=== PATIENT | female | born 1950 | race Hispanic/Latino ===

== ENCOUNTER 2017-05-02 11:10 | Inpatient (IN) | payer OTHER ==
[2017-05-02] VITALS (15 sets, daily range): BP systolic 67–137; BP diastolic 42–86
[~2017-05-02] VITALS: Ht 162.6 cm; Wt 67.5 kg
[~2017-05-02 11:10] MED LIST: AMLO1CAP13 PO; ATOR40TA69 PO; ERGO500014 PO; ESCI20TA36 PO; LEVO75TA10 PO; MELO-108 PO; METO25TA6 PO
[2017-05-02] MEDS ORDERED: METHYLPREDNISOLONE SOD SUCC 125MG/2ML VIAL ONE (11:14)
[2017-05-02] MEDS ORDERED: DiphenhydrAMINE HCL 50 MG/ML VIAL ONE (11:14)
[2017-05-02] MEDS ORDERED: RACEPINEPHRINE HCL 2.25% 0.5 ML NEB SOLN ONE (11:32)
[2017-05-02 11:51] LABS: BASOPHILS % (AUTO) 0.6 % (0.0-5.0); EOSINOPHILS % (AUTO) 0.9 % (0.0-8.0); HEMATOCRIT 40.7 % (36-48); LYMPHOCYTES % (AUTO) 37.5 % (21.0-51.0); MEAN CORPUSCULAR HEMOGLOBIN 34.1 pg (27.0-33.0); MEAN CORPUSCULAR VOLUME 97.3 fL (79-99); MONOCYTES % (AUTO) 8.1 % (3.0-13.0); NEUTROPHILS % (AUTO) 52.9 % (40.0-77.0); NUCLEATED RED BLOOD CELLS 0.1 % (0.0-0.19); PLATELET COUNT (AUTO) 305 K/uL (130-400); RED BLOOD CELL COUNT(AUTO) 4.18 MIL/uL (4.00-5.50); RED CELL DISTRIBUTION WIDTH 13.9 % (11.0-15.5); WHITE BLOOD COUNT (AUTO) 5.1 K/uL (4.8-10.8)
[2017-05-02] MEDS ORDERED: FAMOTIDINE/PF 20 MG/2 ML VIAL IV ONE (12:04)
[2017-05-02 12:06] LABS: CREATININE 0.7 mg/dL (0.5-1.5); POTASSIUM 3.9 mmol/L (3.5-5.1)
[2017-05-02] MEDS ORDERED: ONDANSETRON HCL 4 MG/2 ML VIAL ONE (12:08)
[2017-05-02 12:10] LABS: ALBUMIN 4.6 g/dL (3.5-5.0); BILIRUBIN,TOTAL 0.8 mg/dL (0.2-1.0); TOTAL PROTEIN, SERUM 8.3 g/dL (6.0-8.3)
[2017-05-02] MEDS ORDERED: PROPOFOL 1000 MG/100 ML 100 ML IV ONE ×2 (12:34→14:27)
[2017-05-02 13:19] LABS: INR 0.9 (0.85-1.15); PARTIAL THROMBOPLASTIN TIME 27.8 SEC (26.3-35.5); PROTHROMBIN TIME 9.5 SEC (9.6-11.6)
[2017-05-02] MEDS ORDERED: MIDAZOLAM HCL 1 MG/ML 2ML VIAL ONE (13:28)
[2017-05-02] MEDS ORDERED: PROPOFOL 1000 MG/100 ML IV PRN (14:15)
[2017-05-02] MEDS ORDERED: SODIUM CHLORIDE 0.9% 1000ML 1,000 ML IV SCH (14:30)
[2017-05-02] MEDS ORDERED: LABETALOL 20 MG/4 ML DISP.SYRIN IV PRN (14:45)
[2017-05-02] MEDS: MORPHINE SULFATE 2 MG/ML 1ML SYG IVP PRN (15:22)
[2017-05-02] MEDS: SODIUM CHLORIDE 0.9% 1000ML 1,000 ML IV SCH (15:22)
[2017-05-02] MEDS: MIDAZOLAM 100MG-0.9% NS 100ML 100 ML IV PRN (15:41)
[2017-05-02] MEDS: FENTANYL 2500MCG+NS 250ML 250 ML IV PRN (15:42)
[2017-05-02 15:52] LABS: ABG BASE EXCESS -5.5 mmol/L (-2.0-3.0); ABG HCO3 20.5 mmol/L (21.0-28.0); ABG OXYGEN SATURATION 96.9 % (95.0-99.0); ABG PCO2 42 mmHg (32-45)
[2017-05-02] MEDS: METHYLPREDNISOLONE SOD SUCC 40MG/ML 1ML IVP SCH ×2 (16:02→21:17)
[2017-05-02] MEDS: ENOXAPARIN SODIUM 40 MG/0.4 ML SYRINGE SQ SCH (16:02)
[2017-05-02] MEDS: NOREPINEPHRINE 4MG/NS 250ML 250 ML IV SCH (17:09)
[2017-05-02 17:28] LABS: APPEARANCE,URINE Clear (CLEAR); BILIRUBIN,URINE Negative (NEGATIVE); COLOR,URINE Yellow (YELLOW); GLUCOSE, URINE (UA) Negative (NEGATIVE); KETONES,URINE 15 mg/dL (NEGATIVE); LEUKOCYTE ESTERASE ,URINE Negative (NEGATIVE); NITRATE,URINE Negative (NEGATIVE); OCCULT BLOOD,URINE Negative (NEGATIVE); PH,URINE 6.5 (5.0-8.0); PROTEIN,URINE Negative (NEGATIVE); UROBILINOGEN,URINE 0.2 mg/dL (0.2-1.0)
[2017-05-02] MEDS ORDERED: GLUCAGON 1MG KIT 1 MG ML IM PRN (20:00)
[2017-05-02] MEDS ORDERED: DEXTROSE 50%-WATER 50 ML DISP.SYRIN IV PRN (20:00)
[2017-05-02] MEDS: INSULIN HUMULIN R 100 UNIT/ML 3ML SQ SCH (20:00)
[2017-05-02] MEDS ORDERED: SODIUM CHLORIDE 0.9% 500ML 500 ML IV ONE (20:00)
[2017-05-02] MEDS: M V I IV SCH (21:17)
[2017-05-02] MEDS: FOLIC ACID IV SCH (21:17)
[2017-05-02] MEDS: [UNRECOGNIZED DRUG - OTHER] IV SCH (21:17)
[2017-05-02] MEDS: THIAMINE IV SCH (21:17)
[2017-05-02] MEDS ORDERED: OMEP20TA25 PO (22:16)
[2017-05-03] VITALS (27 sets, daily range): BP systolic 91–123; BP diastolic 49–66
[2017-05-03] MEDS: METHYLPREDNISOLONE SOD SUCC 40MG/ML 1ML IVP SCH ×4 (02:29→20:48)
[2017-05-03] MEDS: MIDAZOLAM 100MG-0.9% NS 100ML 100 ML IV PRN ×2 (03:16→19:07)
[2017-05-03] MEDS: SODIUM CHLORIDE 0.9% 1000ML 1,000 ML IV SCH ×2 (03:30→17:20)
[2017-05-03] MEDS: NOREPINEPHRINE 4MG/NS 250ML 250 ML IV SCH (04:37)
[2017-05-03] MEDS: INSULIN HUMULIN R 100 UNIT/ML 3ML SQ SCH ×4 (06:00→17:19)
[2017-05-03] MEDS: CEFTRIAXONE SODIUM 1 GM IVP SCH (08:48)
[2017-05-03] MEDS: ENOXAPARIN SODIUM 40 MG/0.4 ML SYRINGE SQ SCH (08:49)
[2017-05-03] MEDS: PANTOPRAZOLE 40 MG/VIAL IVP SCH (09:00)
[2017-05-03] MEDS ORDERED: CEFTRIAXONE 1GM/D5W 50ML 50 ML IV SCH (09:00)
[2017-05-03] MEDS: [UNRECOGNIZED DRUG - OTHER] IV SCH (09:39)
[2017-05-03] MEDS: THIAMINE IV SCH (09:39)
[2017-05-03] MEDS: FAMOTIDINE/PF 20 MG/2 ML VIAL IV SCH ×2 (09:39→20:48)
[2017-05-03] MEDS: M V I IV SCH (09:39)
[2017-05-03] MEDS: FOLIC ACID IV SCH (09:39)
[2017-05-03] MEDS: FENTANYL 2500MCG+NS 250ML 250 ML IV PRN (15:18)
[2017-05-04] VITALS (25 sets, daily range): BP systolic 109–159; BP diastolic 57–88
[2017-05-04] MEDS: SODIUM CHLORIDE 0.9% 1000ML 1,000 ML IV SCH ×2 (01:34→20:34)
[2017-05-04] MEDS: METHYLPREDNISOLONE SOD SUCC 40MG/ML 1ML IVP SCH ×4 (02:23→21:28)
[2017-05-04 04:02] LABS: HEMATOCRIT 32.7 % (36-48); MEAN CORPUSCULAR HGB CONC 35.4 g/dL (32.0-36.0); MEAN CORPUSCULAR VOLUME 98.9 fL (79-99); PLATELET COUNT (AUTO) 237 K/uL (130-400); RED BLOOD CELL COUNT(AUTO) 3.31 MIL/uL (4.00-5.50); RED CELL DISTRIBUTION WIDTH 13.7 % (11.0-15.5); WHITE BLOOD COUNT (AUTO) 7.2 K/uL (4.8-10.8)
[2017-05-04 04:14] LABS: CREATININE 0.5 mg/dL (0.5-1.5); POTASSIUM 3.7 mmol/L (3.5-5.1)
[2017-05-04] MEDS: INSULIN HUMULIN R 100 UNIT/ML 3ML SQ SCH ×4 (06:00→18:00)
[2017-05-04] MEDS ORDERED: CALCIUM GLUCONATE 1 GM in SODIUM CHLORIDE 0.9% 50 ML IV SCH (06:15)
[2017-05-04 06:50] LABS: ALBUMIN 2.8 g/dL (3.5-5.0); BILIRUBIN,TOTAL 0.4 mg/dL (0.2-1.0); MAGNESIUM 2.1 mg/dL (1.80-2.40); TOTAL PROTEIN, SERUM 5.6 g/dL (6.0-8.3)
[2017-05-04] MEDS: CEFTRIAXONE SODIUM 1 GM IVP SCH (08:29)
[2017-05-04] MEDS: ENOXAPARIN SODIUM 40 MG/0.4 ML SYRINGE SQ SCH (08:30)
[2017-05-04] MEDS ORDERED: PANTOPRAZOLE SODIUM 40 MG TABLET.DR PO ONE (08:37)
[2017-05-04] MEDS: [UNRECOGNIZED DRUG - OTHER] IV SCH (08:50)
[2017-05-04] MEDS: M V I IV SCH (08:50)
[2017-05-04] MEDS: FAMOTIDINE/PF 20 MG/2 ML VIAL IV SCH ×2 (08:50→20:33)
[2017-05-04] MEDS: THIAMINE IV SCH (08:50)
[2017-05-04] MEDS: FOLIC ACID IV SCH (08:50)
[2017-05-04] MEDS: PANTOPRAZOLE 40 MG/VIAL IVP SCH (08:51)
[2017-05-04] MEDS: MIDAZOLAM 100MG-0.9% NS 100ML 100 ML IV PRN (09:19)
[2017-05-04] MEDS: FENTANYL 2500MCG+NS 250ML 250 ML IV PRN (20:15)
[2017-05-05] VITALS (20 sets, daily range): BP systolic 124–150; BP diastolic 56–95
[2017-05-05 03:58] LABS: BASOPHILS % (AUTO) 0.3 % (0.0-5.0); HEMATOCRIT 33.7 % (36-48); MEAN CORPUSCULAR HEMOGLOBIN 33.2 pg (27.0-33.0); MEAN CORPUSCULAR HGB CONC 34.3 g/dL (32.0-36.0); MEAN CORPUSCULAR VOLUME 96.8 fL (79-99); MONOCYTES % (AUTO) 5.5 % (3.0-13.0); NEUTROPHILS % (AUTO) 84.9 % (40.0-77.0); PLATELET COUNT (AUTO) 208 K/uL (130-400); RED BLOOD CELL COUNT(AUTO) 3.48 MIL/uL (4.00-5.50); RED CELL DISTRIBUTION WIDTH 13.5 % (11.0-15.5); WHITE BLOOD COUNT (AUTO) 7.1 K/uL (4.8-10.8)
[2017-05-05 04:14] LABS: ALBUMIN 2.7 g/dL (3.5-5.0); BILIRUBIN,TOTAL 0.5 mg/dL (0.2-1.0); CREATININE 0.5 mg/dL (0.5-1.5); TOTAL PROTEIN, SERUM 5.9 g/dL (6.0-8.3)
[2017-05-05 04:20] LABS: POTASSIUM 2.8 mmol/L (3.5-5.1)
[2017-05-05 04:21] LABS: LYMPHOCYTES % (AUTO) 9.3 % (21.0-51.0)
[2017-05-05] MEDS: INSULIN HUMULIN R 100 UNIT/ML 3ML SQ SCH ×4 (04:35→18:00)
[2017-05-05] MEDS ORDERED: POTASSIUM CHLORIDE 10% ELIXIR 20 MEQ/15 ML UDCUP PO PRN (04:45)
[2017-05-05] MEDS ORDERED: POTASSIUM CHLORIDE 20 MEQ ERTAB PO PRN (04:45)
[2017-05-05] MEDS: METHYLPREDNISOLONE SOD SUCC 40MG/ML 1ML IVP SCH ×4 (04:45→20:15)
[2017-05-05] MEDS: POTASSIUM CHLORIDE 20MEQ/100ML 100 ML IV PRN ×4 (05:45→23:59)
[2017-05-05] MEDS: SODIUM CHLORIDE 0.9% 1000ML 1,000 ML IV SCH ×2 (05:46→23:21)
[2017-05-05] MEDS: FAMOTIDINE/PF 20 MG/2 ML VIAL IV SCH ×2 (09:22→20:15)
[2017-05-05] MEDS: PANTOPRAZOLE SODIUM 40 MG TABLET.DR PO SCH (09:22)
[2017-05-05] MEDS: ENOXAPARIN SODIUM 40 MG/0.4 ML SYRINGE SQ SCH (09:23)
[2017-05-05] MEDS: NICOTINE 14 MG/ 24 HR PATCH TD SCH (09:23)
[2017-05-05] MEDS: CEFTRIAXONE SODIUM 1 GM IVP SCH (09:24)
[2017-05-05] MEDS: FOLIC ACID IV SCH (10:32)
[2017-05-05] MEDS: THIAMINE IV SCH (10:32)
[2017-05-05] MEDS: M V I IV SCH (10:32)
[2017-05-05] MEDS: [UNRECOGNIZED DRUG - OTHER] IV SCH (10:32)
[2017-05-05] MEDS ORDERED: ERGOCALCIFEROL (VITAMIN D2) 50,000 UNIT CAPSULE PO SCH (13:30)
[2017-05-05] MEDS ORDERED: MORPHINE SULFATE 4 MG/1ML SYG IV PRN (13:30)
[2017-05-05] MEDS: CHLORHEXIDINE GLUCONATE 473 ML MOUTHWASH MM SCH ×2 (20:14→23:22)
[2017-05-05] MEDS: METOPROLOL TARTRATE 25 MG TAB PO SCH (20:15)
[2017-05-05] MEDS: MORPHINE SULFATE 2 MG/ML 1ML SYG IVP PRN (20:15)
[2017-05-05] MEDS: LIDOCAINE HCL-MPF 1% 2ML VIAL IVP PRN (21:21)
[2017-05-06] VITALS (20 sets, daily range): BP systolic 85–139; BP diastolic 57–95
[2017-05-06] MEDS: LIDOCAINE HCL-MPF 1% 2ML VIAL IVP PRN ×3 (00:02→14:40)
[2017-05-06] MEDS: METHYLPREDNISOLONE SOD SUCC 40MG/ML 1ML IVP SCH ×3 (02:32→21:07)
[2017-05-06] MEDS ORDERED: LORAZEPAM 2 MG/ML 1 ML VIAL ONE (02:49)
[2017-05-06] MEDS: CHLORHEXIDINE GLUCONATE 473 ML MOUTHWASH MM SCH ×3 (05:39→18:24)
[2017-05-06] MEDS: INSULIN HUMULIN R 100 UNIT/ML 3ML SQ SCH ×4 (05:48→16:07)
[2017-05-06 08:15] LABS: BASOPHILS % (AUTO) 0.1 % (0.0-5.0); HEMATOCRIT 37.8 % (36-48); LYMPHOCYTES % (AUTO) 7.4 % (21.0-51.0); MEAN CORPUSCULAR HEMOGLOBIN 34.1 pg (27.0-33.0); MEAN CORPUSCULAR HGB CONC 35.3 g/dL (32.0-36.0); MEAN CORPUSCULAR VOLUME 96.6 fL (79-99); MONOCYTES % (AUTO) 8.1 % (3.0-13.0); NEUTROPHILS % (AUTO) 84.4 % (40.0-77.0); PLATELET COUNT (AUTO) 235 K/uL (130-400); RED BLOOD CELL COUNT(AUTO) 3.91 MIL/uL (4.00-5.50); RED CELL DISTRIBUTION WIDTH 13.4 % (11.0-15.5); WHITE BLOOD COUNT (AUTO) 9.8 K/uL (4.8-10.8)
[2017-05-06] MEDS: ATORVASTATIN CALCIUM 40 MG TABLET PO SCH (08:21)
[2017-05-06] MEDS: CITALOPRAM 20 MG TABLET PO SCH (08:21)
[2017-05-06] MEDS: PANTOPRAZOLE SODIUM 40 MG TABLET.DR PO SCH (08:21)
[2017-05-06] MEDS: LEVOTHYROXINE 75 MCG TABLET PO SCH (08:21)
[2017-05-06] MEDS: NICOTINE 14 MG/ 24 HR PATCH TD SCH (08:31)
[2017-05-06] MEDS: FAMOTIDINE/PF 20 MG/2 ML VIAL IV SCH ×2 (08:32→21:07)
[2017-05-06] MEDS: CEFTRIAXONE SODIUM 1 GM IVP SCH (08:34)
[2017-05-06 08:35] LABS: ALBUMIN 3.1 g/dL (3.5-5.0); BILIRUBIN,TOTAL 0.5 mg/dL (0.2-1.0); CREATININE 0.6 mg/dL (0.5-1.5); MAGNESIUM 2.2 mg/dL (1.80-2.40); TOTAL PROTEIN, SERUM 6.8 g/dL (6.0-8.3)
[2017-05-06 08:36] LABS: POTASSIUM 2.9 mmol/L (3.5-5.1)
[2017-05-06] MEDS: LORAZEPAM 2 MG/ML 1 ML VIAL IVP PRN (08:38)
[2017-05-06] MEDS: ENOXAPARIN SODIUM 40 MG/0.4 ML SYRINGE SQ SCH (08:42)
[2017-05-06] MEDS: POTASSIUM CHLORIDE 20MEQ/100ML 100 ML IV PRN ×2 (08:47→14:41)
[2017-05-06] MEDS: THIAMINE IV SCH (11:30)
[2017-05-06] MEDS: [UNRECOGNIZED DRUG - OTHER] IV SCH (11:30)
[2017-05-06] MEDS: FOLIC ACID IV SCH (11:30)
[2017-05-06] MEDS: M V I IV SCH (11:30)
[2017-05-06] MEDS ORDERED: CHLORDIAZEPOXIDE HCL 25 MG CAP PO ONE (14:00)
[2017-05-06] MEDS: METOPROLOL TARTRATE 25 MG TAB PO SCH (21:07)
[2017-05-07] VITALS (8 sets, daily range): BP systolic 98–153; BP diastolic 60–97
[2017-05-07] MEDS: CHLORHEXIDINE GLUCONATE 473 ML MOUTHWASH MM SCH ×5 (00:05→17:17)
[2017-05-07 04:43] LABS: MAGNESIUM 2.1 mg/dL (1.80-2.40); PHOSPHORUS 3.3 mg/dL (2.5-4.9)
[2017-05-07] MEDS: INSULIN HUMULIN R 100 UNIT/ML 3ML SQ SCH ×4 (06:00→17:17)
[2017-05-07] MEDS ORDERED: POTASSIUM CHLORIDE 10% ELIXIR 20 MEQ/15 ML UDCUP PO PRN (06:30)
[2017-05-07 08:30] LABS: BASOPHILS % (AUTO) 0.3 % (0.0-5.0); HEMATOCRIT 40.5 % (36-48); LYMPHOCYTES % (AUTO) 10.7 % (21.0-51.0); MEAN CORPUSCULAR HEMOGLOBIN 33.1 pg (27.0-33.0); MEAN CORPUSCULAR HGB CONC 33.5 g/dL (32.0-36.0); MEAN CORPUSCULAR VOLUME 98.8 fL (79-99); MONOCYTES % (AUTO) 5.9 % (3.0-13.0); NEUTROPHILS % (AUTO) 83.1 % (40.0-77.0); PLATELET COUNT (AUTO) 226 K/uL (130-400); RED CELL DISTRIBUTION WIDTH 13.8 % (11.0-15.5); WHITE BLOOD COUNT (AUTO) 7.4 K/uL (4.8-10.8)
[2017-05-07 08:41] LABS: CREATININE 0.6 mg/dL (0.5-1.5); POTASSIUM 4.4 mmol/L (3.5-5.1)
[2017-05-07] MEDS: NICOTINE 14 MG/ 24 HR PATCH TD SCH (09:38)
[2017-05-07] MEDS: CHLORDIAZEPOXIDE HCL 25 MG CAP PO SCH (09:38)
[2017-05-07] MEDS: ATORVASTATIN CALCIUM 40 MG TABLET PO SCH (09:38)
[2017-05-07] MEDS: METHYLPREDNISOLONE SOD SUCC 40MG/ML 1ML IVP SCH ×2 (09:38→22:03)
[2017-05-07] MEDS: LEVOTHYROXINE 75 MCG TABLET PO SCH (09:38)
[2017-05-07] MEDS: FAMOTIDINE/PF 20 MG/2 ML VIAL IV SCH ×2 (09:39→22:03)
[2017-05-07] MEDS: PANTOPRAZOLE SODIUM 40 MG TABLET.DR PO SCH (09:39)
[2017-05-07] MEDS: CITALOPRAM 20 MG TABLET PO SCH (09:40)
[2017-05-07] MEDS: ENOXAPARIN SODIUM 40 MG/0.4 ML SYRINGE SQ SCH (09:41)
[2017-05-07] MEDS: CEFTRIAXONE SODIUM 1 GM IVP SCH (09:44)
[2017-05-07] MEDS: FOLIC ACID IV SCH (13:30)
[2017-05-07] MEDS: M V I IV SCH (13:30)
[2017-05-07] MEDS: THIAMINE IV SCH (13:30)
[2017-05-07] MEDS: [UNRECOGNIZED DRUG - OTHER] IV SCH (13:30)
[2017-05-07] MEDS: MORPHINE SULFATE 2 MG/ML 1ML SYG IVP PRN (15:27)
[2017-05-07] MEDS: LORAZEPAM 2 MG/ML 1 ML VIAL IVP PRN (22:27)
[2017-05-08] MEDS: METOPROLOL TARTRATE 25 MG TAB PO SCH (01:15)
[2017-05-08 03:54] VITALS: BP 119/69
[2017-05-08 04:23] LABS: HEMATOCRIT 37.7 % (36-48); MEAN CORPUSCULAR HGB CONC 34.5 g/dL (32.0-36.0); MEAN CORPUSCULAR VOLUME 98.5 fL (79-99); PLATELET COUNT (AUTO) 251 K/uL (130-400); RED BLOOD CELL COUNT(AUTO) 3.83 MIL/uL (4.00-5.50); RED CELL DISTRIBUTION WIDTH 13.4 % (11.0-15.5); WHITE BLOOD COUNT (AUTO) 6.7 K/uL (4.8-10.8)
[2017-05-08 04:36] LABS: CREATININE 0.6 mg/dL (0.5-1.5); PHOSPHORUS 3.8 mg/dL (2.5-4.9); POTASSIUM 3.8 mmol/L (3.5-5.1)
[2017-05-08] MEDS: MORPHINE SULFATE 2 MG/ML 1ML SYG IVP PRN ×2 (04:42→18:18)
[2017-05-08 04:44] LABS: LYMPHOCYTES % (MANUAL) 13 % (22-44); MONOCYTES % (MANUAL) 6 % (2-9); SEGMENTED NEUTROPHILS % 81 % (40-70)
[2017-05-08 04:45] LABS: MAN.DIFF COMMENT-IMPRESSION MANUAL DIFFERENTIAL; PLATELET MORPHOLOGY COMMENT ADEQUATE
[2017-05-08] MEDS ORDERED: POTASSIUM CHLORIDE 10 MEQ/TAB.SA PO ONE ×6 (04:53→06:25)
[2017-05-08] MEDS: INSULIN HUMULIN R 100 UNIT/ML 3ML SQ SCH ×5 (05:59→23:18)
[2017-05-08] MEDS: CHLORHEXIDINE GLUCONATE 473 ML MOUTHWASH MM SCH ×4 (06:40→18:00)
[2017-05-08 07:00] VITALS: BP 125/79
[2017-05-08] MEDS: CITALOPRAM 20 MG TABLET PO SCH (10:11)
[2017-05-08] MEDS: THIAMINE HCL 100 MG/ML 2ML VIAL IVP SCH (10:11)
[2017-05-08] MEDS: CHLORDIAZEPOXIDE HCL 25 MG CAP PO SCH (10:11)
[2017-05-08] MEDS: ATORVASTATIN CALCIUM 40 MG TABLET PO SCH (10:11)
[2017-05-08] MEDS: NICOTINE 14 MG/ 24 HR PATCH TD SCH (10:11)
[2017-05-08] MEDS: LEVOTHYROXINE 75 MCG TABLET PO SCH (10:11)
[2017-05-08] MEDS: PREDNISONE 20 MG TABLET PO SCH (10:11)
[2017-05-08] MEDS: FOLIC ACID 1 MG TABLET PO SCH (10:11)
[2017-05-08] MEDS: PANTOPRAZOLE SODIUM 40 MG TABLET.DR PO SCH (10:11)
[2017-05-08] MEDS: FAMOTIDINE/PF 20 MG/2 ML VIAL IV SCH ×2 (10:11→21:29)
[2017-05-08] MEDS: ENOXAPARIN SODIUM 40 MG/0.4 ML SYRINGE SQ SCH (10:11)
[2017-05-08 11:00] VITALS: BP 136/90
[2017-05-08 16:00] VITALS: BP 142/77
[2017-05-08 19:40] VITALS: BP 102/66
[2017-05-08 23:55] VITALS: BP 125/74
[2017-05-09] MEDS: METOPROLOL TARTRATE 25 MG TAB PO SCH ×2 (00:10→23:37)
[2017-05-09 03:48] VITALS: BP 120/72
[2017-05-09 04:22] LABS: BASOPHILS % (AUTO) 0.3 % (0.0-5.0); EOSINOPHILS % (AUTO) 0.5 % (0.0-8.0); HEMATOCRIT 36.4 % (36-48); LYMPHOCYTES % (AUTO) 36.1 % (21.0-51.0); MEAN CORPUSCULAR HEMOGLOBIN 33.6 pg (27.0-33.0); MEAN CORPUSCULAR HGB CONC 34.4 g/dL (32.0-36.0); MEAN CORPUSCULAR VOLUME 97.8 fL (79-99); MONOCYTES % (AUTO) 11.4 % (3.0-13.0); NEUTROPHILS % (AUTO) 51.7 % (40.0-77.0); PLATELET COUNT (AUTO) 239 K/uL (130-400); RED BLOOD CELL COUNT(AUTO) 3.72 MIL/uL (4.00-5.50); RED CELL DISTRIBUTION WIDTH 13.3 % (11.0-15.5); WHITE BLOOD COUNT (AUTO) 7.3 K/uL (4.8-10.8)
[2017-05-09 04:26] LABS: CREATININE 0.7 mg/dL (0.5-1.5); POTASSIUM 3.6 mmol/L (3.5-5.1)
[2017-05-09] MEDS ORDERED: POTASSIUM CHLORIDE 10 MEQ/TAB.SA PO ONE ×5 (04:54→05:21)
[2017-05-09] MEDS: INSULIN HUMULIN R 100 UNIT/ML 3ML SQ SCH ×4 (06:00→21:00)
[2017-05-09 06:16] LABS: MAGNESIUM 1.9 mg/dL (1.80-2.40); PHOSPHORUS 3.6 mg/dL (2.5-4.9)
[2017-05-09] MEDS: CHLORHEXIDINE GLUCONATE 473 ML MOUTHWASH MM SCH ×5 (06:47→23:40)
[2017-05-09 07:00] VITALS: BP 130/75
[2017-05-09] MEDS: ATORVASTATIN CALCIUM 40 MG TABLET PO SCH (09:57)
[2017-05-09] MEDS: PREDNISONE 20 MG TABLET PO SCH (09:57)
[2017-05-09] MEDS: CITALOPRAM 20 MG TABLET PO SCH (09:57)
[2017-05-09] MEDS: ENOXAPARIN SODIUM 40 MG/0.4 ML SYRINGE SQ SCH (09:57)
[2017-05-09] MEDS: THIAMINE HCL 100 MG/ML 2ML VIAL IVP SCH (09:57)
[2017-05-09] MEDS: PANTOPRAZOLE SODIUM 40 MG TABLET.DR PO SCH (09:57)
[2017-05-09] MEDS: NICOTINE 14 MG/ 24 HR PATCH TD SCH (09:57)
[2017-05-09] MEDS: FOLIC ACID 1 MG TABLET PO SCH (09:57)
[2017-05-09] MEDS: LEVOTHYROXINE 75 MCG TABLET PO SCH (09:57)
[2017-05-09] MEDS: CHLORDIAZEPOXIDE HCL 25 MG CAP PO SCH (09:57)
[2017-05-09] MEDS: FAMOTIDINE/PF 20 MG/2 ML VIAL IV SCH ×2 (09:57→21:36)
[2017-05-09 11:00] VITALS: BP 119/64
[2017-05-09] MEDS: MORPHINE SULFATE 2 MG/ML 1ML SYG IVP PRN ×2 (12:51→18:10)
[2017-05-09 16:00] VITALS: BP 148/88
[2017-05-09 19:38] VITALS: BP 106/66
[2017-05-09 22:48] VITALS: BP 105/59
[2017-05-10 04:03] VITALS: BP 105/65
[2017-05-10 04:47] LABS: BASOPHILS % (AUTO) 0.1 % (0.0-5.0); EOSINOPHILS % (AUTO) 0.7 % (0.0-8.0); HEMATOCRIT 34.5 % (36-48); MEAN CORPUSCULAR HEMOGLOBIN 33.9 pg (27.0-33.0); MEAN CORPUSCULAR HGB CONC 34.4 g/dL (32.0-36.0); MEAN CORPUSCULAR VOLUME 98.6 fL (79-99); MONOCYTES % (AUTO) 13.4 % (3.0-13.0); NEUTROPHILS % (AUTO) 50.8 % (40.0-77.0); PLATELET COUNT (AUTO) 254 K/uL (130-400); RED CELL DISTRIBUTION WIDTH 13.4 % (11.0-15.5); WHITE BLOOD COUNT (AUTO) 6.8 K/uL (4.8-10.8)
[2017-05-10 04:48] LABS: MAGNESIUM 1.9 mg/dL (1.80-2.40); PHOSPHORUS 3.9 mg/dL (2.5-4.9)
[2017-05-10 05:21] LABS: CREATININE 0.6 mg/dL (0.5-1.5); POTASSIUM 3.3 mmol/L (3.5-5.1)
[2017-05-10] MEDS ORDERED: POTASSIUM CHLORIDE 10 MEQ/TAB.SA PO ONE ×2 (05:32)
[2017-05-10] MEDS: CHLORHEXIDINE GLUCONATE 473 ML MOUTHWASH MM SCH ×2 (06:00→12:00)
[2017-05-10] MEDS: INSULIN HUMULIN R 100 UNIT/ML 3ML SQ SCH ×3 (06:26→16:30)
[2017-05-10 07:22] VITALS: BP 120/67
[2017-05-10] MEDS: CITALOPRAM 20 MG TABLET PO SCH (07:57)
[2017-05-10] MEDS: LEVOTHYROXINE 75 MCG TABLET PO SCH (07:57)
[2017-05-10] MEDS: PREDNISONE 20 MG TABLET PO SCH (07:57)
[2017-05-10] MEDS: PANTOPRAZOLE SODIUM 40 MG TABLET.DR PO SCH (07:57)
[2017-05-10] MEDS: ATORVASTATIN CALCIUM 40 MG TABLET PO SCH (07:58)
[2017-05-10] MEDS: FOLIC ACID 1 MG TABLET PO SCH (07:58)
[2017-05-10] MEDS: CHLORDIAZEPOXIDE HCL 25 MG CAP PO SCH (07:58)
[2017-05-10] MEDS: THIAMINE HCL 100 MG/ML 2ML VIAL IVP SCH (08:00)
[2017-05-10] MEDS: ENOXAPARIN SODIUM 40 MG/0.4 ML SYRINGE SQ SCH (08:00)
[2017-05-10] MEDS: FAMOTIDINE/PF 20 MG/2 ML VIAL IV SCH (08:01)
[2017-05-10] MEDS: NICOTINE 14 MG/ 24 HR PATCH TD SCH (09:52)
[2017-05-10] MEDS: MORPHINE SULFATE 2 MG/ML 1ML SYG IVP PRN (10:00)
[2017-05-10 11:10] VITALS: BP 84/51
[2017-05-10 13:15] VITALS: BP 99/55
[2017-05-10 16:21] VITALS: BP 108/65
== END 2017-05-10 18:30 | DRG 4 ==
LOC: EDH 11:10 → 2CH 12:45 → 2AH 05-06 18:33
PROVIDERS: ADMIT Family Medicine; ATTEND Family Medicine
PROC: 0B113F4 Bypass Trachea to Cutaneous with Tracheostomy Device, Percutaneous Approach (ICD-10-PCS; 2017-05-02)
PROC: 5A1945Z Respiratory Ventilation, 24-96 Consecutive Hours (ICD-10-PCS; principal; 2017-05-02 13:10)
DX: T78.3XXA Angioneurotic edema, initial encounter (principal); J96.00 Acute respiratory failure, unspecified whether with hypoxia or hypercapnia; J96.90 Respiratory failure, unspecified, unspecified whether with hypoxia or hypercapnia; E11.65 Type 2 diabetes mellitus with hyperglycemia; E03.9 Hypothyroidism, unspecified; I10 Essential (primary) hypertension; E87.6 Hypokalemia; E83.51 Hypocalcemia; F32.9 Major depressive disorder, single episode, unspecified; D64.9 Anemia, unspecified; E66.9 Obesity, unspecified; F10.10 Alcohol abuse, uncomplicated; F17.210 Nicotine dependence, cigarettes, uncomplicated; K08.89 Other specified disorders of teeth and supporting structures; T88.4XXA Failed or difficult intubation, initial encounter; Z75.1 Person awaiting admission to adequate facility elsewhere; Z79.899 Other long term (current) drug therapy; Z68.25 Body mass index [BMI] 25.0-25.9, adult
CPT/HCPCS: 36415; 36600; 71045; 80048; 80053; 81003; 82803; 82948; 83735; 84100; 84132; 85025; 85027; 85610; 85730; 87088; 92597; 92610; 93005; 94002; 94003; 94640; 99291; A4218; C9113; J0610; J0696; J1200; J1650; J2060; J2250; J2405; J2704; J2920; J2930; J3010; J3411; J3480; J3490; J7030; J7040

== ENCOUNTER → 2022-02-21 | Outpatient (CLI) | payer OTHER ==
[~2022-02-21] MED LIST changes: -AMLO1CAP13 PO; -ESCI20TA36 PO; +ESCI20TA38 PO
== END | disposition home or self-care (01) ==
LOC: SHCH 09:13
PROVIDERS: ATTEND Internal Medicine Cardiovascular Disease
DX: I87.2 Venous insufficiency (chronic) (peripheral) (principal); I73.9 Peripheral vascular disease, unspecified
CPT/HCPCS: 93925; 93970